=== PATIENT | male | born 1975 | race Caucasian/White ===

== ENCOUNTER 2016-07-22 11:01 | Emergency (ER) | payer SELFPAY ==
[~2016-07-22] VITALS: Ht 177.8 cm; Wt 88.1 kg
[~2016-07-22 11:01] MED LIST: ALBUTEROL SULF8.5 GM IH; FLEXERIL10 MG PO; NAPROSYN500 MG PO; NOHOMEMEDS; PREDNISONE20 MG PO; PREDNISONE50 MG PO; PROVENTIL HFA6.7 GM IH; PROVENTIL,2.5 MG/3 M IH; TRAMADOL HCL50 MG PO; ULTRAM50 MG PO; ZITHROMAX250 MG PO; ZOFRAN4 MG PO
[2016-07-22] MEDS ORDERED: CLEOCIN300 MG PO (14:14)
[2016-07-22] MEDS ORDERED: NAPROSYN500 MG PO (14:14)
[2016-07-22] MEDS ORDERED: PERCOCET 5/31 TABLET PO (14:14)
[2016-07-22 14:47] VITALS: BP 117/82
== END 2016-07-22 14:40 | disposition home or self-care (01) ==
LOC: EME 11:01
PROC: 3E0T3BZ Introduction of Anesthetic Agent into Peripheral Nerves and Plexi, Percutaneous Approach (ICD-10-PCS; principal; 2016-07-22)
DX: K08.89 Other specified disorders of teeth and supporting structures (principal); R68.84 Jaw pain; K03.81 Cracked tooth; J45.909 Unspecified asthma, uncomplicated
CPT/HCPCS: 99281; 99283

== ENCOUNTER 2017-01-09 07:50 | Emergency (ER) | payer SELFPAY ==
[~2017-01-09] VITALS: Ht 177.8 cm; Wt 83.4 kg
[~2017-01-09 07:50] MED LIST changes: +CLEOCIN300 MG PO; +PERCOCET 5/31 TABLET PO
[2017-01-09] MEDS ORDERED: PREDNISONE50 MG PO (11:31)
[2017-01-09] MEDS ORDERED: VENTOLIN HFA18 GM IH (11:31)
[2017-01-09 11:52] VITALS: BP 124/75
== END 2017-01-09 11:53 | disposition home or self-care (01) ==
LOC: EME 07:50
DX: J45.901 Unspecified asthma with (acute) exacerbation (principal); Z87.891 Personal history of nicotine dependence
CPT/HCPCS: 71020; 94640; 94640 76; 99281; 99284; J7512

== ENCOUNTER 2017-08-08 13:20 | Emergency (ER) | payer SELFPAY ==
[~2017-08-08] VITALS: Ht 177.8 cm; Wt 80.5 kg
[~2017-08-08 13:20] MED LIST changes: +VENTOLIN HFA18 GM IH
[2017-08-08 14:47] LABS: HEMATOCRIT 47.1 % (38.0-50.0); HEMOGLOBIN 16.3 G/DL (12.5-16.6); MCH 32.1 PG (29.0-34.0); MCHC 34.6 G/DL (30.0-36.0); MCV 92.9 FL (86-99); PLATELET COUNT 131 K/uL (156-360); RBC DIS.WIDTH-CV 13.2 % (11.8-14.6); RBC DIS.WIDTH-SD 44.5 % (39-53); RED BLOOD COUNT 5.07 M/uL (4.00-5.50); WHITE BLOOD COUNT 6.8 K/uL (4.1-10.2)
[2017-08-08 14:57] LABS: CHLORIDE 104 mEq/L (99-109); POTASSIUM 4.5 mEq/L (3.7-5.4); SODIUM 139 mEq/L (136-147)
[2017-08-08 14:58] LABS: GLUCOSE 97 mg/dL (70-99)
[2017-08-08 15:02] LABS: CREATININE 1.1 mg/dL (0.6-1.3); GFR ESTIMATE (CALCULATED) > 59 mL/min/ (58.99-99999)
[2017-08-08 15:03] LABS: UREA NITROGEN (BUN) 12 mg/dL (9-23)
[2017-08-08] MEDS ORDERED: VENTOLIN HFA18 GM IH (17:03)
[2017-08-08 17:30] VITALS: BP 117/101
== END 2017-08-08 17:41 | disposition home or self-care (01) ==
LOC: EME 13:20
DX: J06.9 Acute upper respiratory infection, unspecified (principal); J45.909 Unspecified asthma, uncomplicated; F17.200 Nicotine dependence, unspecified, uncomplicated; Z71.6 Tobacco abuse counseling; Z88.0 Allergy status to penicillin
CPT/HCPCS: 71046; 80048; 85027; 87502; 99281; 99284; J1100

== ENCOUNTER 2017-10-17 09:25 | Emergency (ER) | payer SELFPAY ==
[~2017-10-17] VITALS: Ht 177.8 cm; Wt 78.5 kg
[2017-10-17 10:24] LABS: HEMATOCRIT 43.9 % (38.0-50.0); HEMOGLOBIN 15.3 G/DL (12.5-16.6); MCH 32.1 PG (29.0-34.0); MCHC 34.9 G/DL (30.0-36.0); MCV 92.2 FL (86-99); PLATELET COUNT 274 K/uL (156-360); RBC DIS.WIDTH-CV 13.2 % (11.8-14.6); RBC DIS.WIDTH-SD 45.4 % (39-53); RED BLOOD COUNT 4.76 M/uL (4.00-5.50); WHITE BLOOD COUNT 9.8 K/uL (4.1-10.2)
[2017-10-17 10:57] LABS: CHLORIDE 104 MEQ/L (99-109); GFR ESTIMATE (CALCULATED) > 59 mL/min/ (58.99-99999); GLUCOSE 92 mg/dL (70-99); POTASSIUM 3.9 MEQ/L (3.7-5.4); SODIUM 138 MEQ/L (136-147); UREA NITROGEN (BUN) 8 mg/dL (9-23)
[2017-10-17 12:10] LABS: D-DIMER ELISA < 150.00 ng/mLDDU (<230)
[2017-10-17] MEDS ORDERED: VENTOLIN HFA18 GM IH (12:15)
[2017-10-17] MEDS ORDERED: PREDNISONE20 MG PO (12:15)
[2017-10-17 12:36] VITALS: BP 143/92
== END 2017-10-17 12:37 | disposition home or self-care (01) ==
LOC: EME 09:25
DX: B34.9 Viral infection, unspecified (principal); J45.909 Unspecified asthma, uncomplicated; F17.200 Nicotine dependence, unspecified, uncomplicated; Z88.0 Allergy status to penicillin
CPT/HCPCS: 71046; 80048; 85027; 85379; 87502; 93005; 94640; 99281; 99284; J7512

== ENCOUNTER 2017-11-11 11:59 | Emergency (ER) | payer SELFPAY ==
[~2017-11-11] VITALS: Ht 177.8 cm; Wt 80.1 kg
[2017-11-11] MEDS ORDERED: NAPROSYN500 MG PO (13:02)
[2017-11-11] MEDS ORDERED: CLEOCIN300 MG PO (13:02)
[2017-11-11] MEDS ORDERED: ULTRAM50 MG PO (13:02)
[2017-11-11 13:20] VITALS: BP 135/78
== END 2017-11-11 13:21 | disposition home or self-care (01) ==
LOC: EME 11:59
DX: K04.7 Periapical abscess without sinus (principal); F17.200 Nicotine dependence, unspecified, uncomplicated; R06.2 Wheezing; Z88.0 Allergy status to penicillin; Z91.09 Other allergy status, other than to drugs and biological substances; Z91.018 Allergy to other foods
CPT/HCPCS: 99281; 99284